=== PATIENT | female | born 1970 | race Caucasian/White ===

== ENCOUNTER 2018-03-13 21:10 | Emergency (ER) | payer SELFPAY ==
[2018-03-13 21:34] VITALS: BP 127/71
[2018-03-13] MEDS ORDERED: NORMAL SALINE 1000 ML 1,000 ML IV ONE (21:58)
--- NOTE | 2018-03-13 22:00 | ER Document Report ---
ED Medical Screen (RME) - General Chief Complaint: Leg Pain Stated Complaint: HEADACHE Time Seen by Provider: 03/13/18 21:54 Notes: 47-year-old female with several complaints. She reports generalized achiness and tingling sensation, she reports lower back pain, aching in her legs, intermittent headaches and nausea sensations. She states that the past 2 days she has been drinking alcohol thinking it might help her headaches. She feels worse. Denies vomiting, fever, chest pain, shortness of breath, severe headache at this time. PMH: None TRAVEL OUTSIDE OF THE [place] IN LAST 30 DAYS: No - Related Data Allergies/Adverse Reactions: levofloxacin [From Levaquin] Adverse Reaction (Verified 11/17/13 03:14) Penicillins Adverse Reaction (Verified 11/17/13 03:14) sulfamethoxazole [From Bactrim] Adverse Reaction (Verified 11/17/13 03:14) trimethoprim [From Bactrim] Adverse Reaction (Verified 11/17/13 03:14) Past Medical History Past Surgical History: Reports: Hx Tonsillectomy - Immunizations Hx Diphtheria, Pertussis, Tetanus Vaccination: Yes Physical Exam - Vital signs Vitals: Temp Pulse Resp BP Pulse Ox 98.4 F 64 16 127/71 H 99 03/13/18 21:33 03/13/18 21:33 03/13/18 21:33 03/13/18 21:33 03/13/18 21:33 - General General appearance: Other - Patient restless, cannot keep her feet still, slightly anxious, however otherwise she is not in any distress - Extremities General lower extremity: Normal inspection, Nontender, Normal color, Normal ROM , Normal strength, Normal temperature. No: Tender, Edema Course - Vital Signs Vital signs: Temp Pulse Resp BP Pulse Ox 98.4 F 64 16 127/71 H 99 03/13/18 21:33 03/13/18 21:33 03/13/18 21:33 03/13/18 21:33 03/13/18 21:33
[2018-03-13 22:29] LABS: ABSOLUTE BASOPHILS # (AUTO) 0.1 10^3/uL (0.0-0.2); ABSOLUTE EOSINOPHILS # (AUTO) 0.5 10^3/uL (0.0-0.6); ABSOLUTE LYMPHOCYTES (AUTO) 4.6 10^3/uL (0.5-4.7); ABSOLUTE MONOCYTES (AUTO) 0.6 10^3/uL (0.1-1.4); ABSOLUTE NEUT (AUTO) 4.5 10^3/uL (1.7-8.2); BASOPHILS % (AUTO) 1.4 % (0-2); EOSINOPHILS % (AUTO) 4.8 % (0-6); HEMATOCRIT 38.7 % (36.0-47.0); HEMOGLOBIN 13.2 g/dL (12.0-15.5); LYMPHOCYTES % (AUTO) 44.2 % (13-45); MEAN CORPUSCULAR HEMOGLOBIN 30.2 pg (27.0-33.4); MEAN CORPUSCULAR HGB CONC 34.2 g/dL (32.0-36.0); MEAN CORPUSCULAR VOLUME 88 fl (80-97); MONOCYTES % (AUTO) 6.1 % (3-13); PLATELET COUNT 368 10^3/uL (150-450); RED BLOOD COUNT 4.38 10^6/uL (3.72-5.28); RED CELL DISTRIBUTION WIDTH 13.6 % (11.5-14.0); SEGMENTED NEUTROPHILS % (AUTO) 43.5 % (42-78); TOTAL CELLS COUNTED % (AUTO) 100 %; WHITE BLOOD COUNT 10.4 10^3/uL (4.0-10.5)
[2018-03-13] MEDS ORDERED: METOCLOPRAMIDE HCL INJ/PF 10 MG/2 ML SDV IV ONE (22:32)
[2018-03-13 23:04] LABS: ANION GAP 10 (5-19); BLOOD UREA NITROGEN 17 mg/dL (7-20); CALCIUM 9.6 mg/dL (8.4-10.2); CARBON DIOXIDE 26 mmol/L (22-30); CHLORIDE 102 mmol/L (98-107); GLUCOSE 94 mg/dL (75-110); POTASSIUM 4.4 mmol/L (3.6-5.0); SODIUM 137.6 mmol/L (137-145)
[2018-03-13 23:37] LABS: APPEARANCE,URINE CLEAR; BILIRUBIN,URINE NEGATIVE (NEGATIVE); COLOR,URINE STRAW; GLUCOSE, URINE NEGATIVE (NEGATIVE); KETONES,URINE NEGATIVE (NEGATIVE); LEUKOCYTE ESTERASE,URINE NEGATIVE (NEGATIVE); NITRITE,URINE NEGATIVE (NEGATIVE); PROTEIN,URINE NEGATIVE (NEGATIVE); URINE SPECIFIC GRAVITY 1.006; UROBILINOGEN,URINE NEGATIVE mg/dL (<2.0)
[2018-03-14] MEDS ORDERED: METOCLOPRAMIDE HCL INJ/PF 10 MG/2 ML SDV IV ONE (00:21)
--- NOTE | 2018-03-14 00:24 | ER Document Report ---
ED General - General Chief Complaint: Leg Pain Stated Complaint: HEADACHE Time Seen by Provider: 03/13/18 21:54 Notes: Patient is a 47-year-old female without chronic medical problems who presents with multiple complaints. Is quite difficult to ascertain exactly what the patient's main complaint is. She does complain of headache, bilateral leg swelling, back pain, dizziness, feelings of fatigue, and nausea. States the symptoms been ongoing for the past 2-3 days. Nothing seems to improve or worsen her symptoms. She attributes these symptoms largely to her headache which she states is a typical headache for her. She describes as a global, throbbing, aching headache. Nothing improves or worsens the headache. She denies any abrupt onset of the headache, focal weakness, numbness or confusion. She has not seen her general doctor regarding today's concerns. She denies fever or constitutional symptoms. TRAVEL OUTSIDE OF THE [place] IN LAST 30 DAYS: No - Related Data Allergies/Adverse Reactions: levofloxacin [From Levaquin] Adverse Reaction (Verified 11/17/13 03:14) Penicillins Adverse Reaction (Verified 11/17/13 03:14) sulfamethoxazole [From Bactrim] Adverse Reaction (Verified 11/17/13 03:14) trimethoprim [From Bactrim] Adverse Reaction (Verified 11/17/13 03:14) Past Medical History - General Information source: Patient - Social History Smoking Status: Current Every Day Smoker Frequency of alcohol use: Occasional Drug Abuse: None Family History: Reviewed & Not Pertinent Patient has suicidal ideation: No Patient has homicidal ideation: No Renal/ Medical History: Denies: Hx Peritoneal Dialysis Past Surgical History: Reports: Hx Tonsillectomy - Immunizations Hx Diphtheria, Pertussis, Tetanus Vaccination: Yes Review of Systems - Review of Systems Notes: Constitutional: Negative for fever. HENT: Negative for sore throat. Eyes: Negative for visual changes. Cardiovascular: Negative for chest pain. Respiratory: Negative for shortness of breath. Gastrointestinal: Negative for abdominal pain, vomiting or diarrhea. Positive for nausea Genitourinary: Negative for dysuria. Musculoskeletal: Positive for low back pain Skin: Negative for rash. Neurological: Positive headaches 10 point ROS negative except as marked above and in HPI. Physical Exam - Vital signs Vitals: Temp Pulse Resp BP Pulse Ox 98.4 F 64 16 127/71 H 99 03/13/18 21:33 03/13/18 21:33 03/13/18 21:33 03/13/18 21:33 03/13/18 21:33 Interpretation: Normal Notes: PHYSICAL EXAMINATION: GENERAL: Well-appearing, well-nourished and in no acute distress. HEAD: Atraumatic, normocephalic. EYES: Pupils equal round and reactive to light, extraocular movements intact, sclera anicteric, conjunctiva are normal. ENT: nares patent, oropharynx clear without exudates. Moist mucous membranes. NECK: Normal range of motion, supple without lymphadenopathy LUNGS: Breath sounds clear to auscultation bilaterally and equal. No wheezes rales or rhonchi. HEART: Regular rate and rhythm without murmurs ABDOMEN: Soft, nontender, normoactive bowel sounds. No guarding, no rebound. No masses appreciated. EXTREMITIES: Normal range of motion, no pitting or edema. No cyanosis. NEUROLOGICAL: Face symmetric. Tongue protrudes midline. Extraocular motions intact. Pupils are 2 mm and equally reactive. Normal speech, normal gait. 5 out of 5 strength in both the distal and proximal upper and lower extremities bilaterally. Sensation is grossly intact throughout. Finger to nose testing normal. Pronator drift normal. PSYCH: Normal mood, normal affect. SKIN: Warm, Dry, normal turgor, no rashes or lesions noted. Course - Re-evaluation Re-evalutation: 03/14/18 00:21 Patient presents with multiple vague complaints that did not appear to be concerning for any acute life-threatening pathology. Vitals are within normal limits at triage and at time of discharge. Physical examination is unremarkable. Patient has tolerated oral intake without difficulty. Patient was not noted to be in distress at any point during their ER visit. Patient did complain of a headache, long-standing, unchanged today. Headache appears to be most consistent with tension versus migrainous type headache. Headache was not maximal in onset, patient has no focal neurologic deficits, no nuchal rigidity, vital signs within normal limits, no papilledema, and patient is overall well in appearance. Based on clinical history and examination I do not suspect an acute subarachnoid hemorrhage, dural venous sinus thrombosis, acute meningitis, or intercranial mass. Given my low clinical suspicion for any acute life-threatening etiology, I do not feel advanced neuro imaging is indicated at this time. Overall, based on the reassuring evaluation, I do not suspect an acute DE, pulmonary embolus, aortic dissection, acute intra- abdominal pathology, stroke, or sepsis. Will discharge with return precautions and follow-up recommendations. Verbal discharge instructions given a the bedside and opportunity for questions given. Medication warnings reviewed. Patient is in agreement with this plan and has verbalized understanding of return precautions and the need for primary care follow-up in the next 24-72 hours. - Vital Signs Vital signs: Temp Pulse Resp BP Pulse Ox 98.4 F 64 16 127/71 H 99 03/13/18 21:33 03/13/18 21:33 03/13/18 21:33 03/13/18 21:33 03/13/18 21:33 - Laboratory Result Diagrams: 03/13/18 22:12 03/13/18 22:12 Laboratory results interpreted by me: 03/13/18 22:15 Urine Blood SMALL H Discharge - Discharge Clinical Impression: Multiple complaints, Bilateral leg pain Headache Qualifiers: Headache type: unspecified Headache chronicity pattern: acute headache Intractability: not intractable Qualified Code(s): R51 - Headache Condition: Good Disposition: HOME, SELF-CARE Additional Instructions: You were seen today for a migraine headache. Please follow-up with your primary care doctor regarding today's ED visit. Return to emergency department immediately if you develop a headache that gets to its maximum severity within 20 minutes of onset, you pass out, you develop weakness, numbness, changes in your vision, become unable to keep any fluids down for more than 12 hours, or develop a fever greater than 100.4 degrees Fahrenheit. If you develop a similar migraine headache in the future I recommend that you immediately take 600 mg of ibuprofen and 50 mg of Benadryl and go to sleep as quickly as possible. This can often prevent your migraine headache from becoming severe. Please return to the emergency room immediately if you experience any concerning symptoms including high fevers, severe headache, chest pain, difficulty breathing, abdominal pain, slurred speech, numbness or weakness in your arms or legs, or any other symptom that concerns you. Prescriptions: Butalb/Acetaminophen/Caffeine [Fioricet (50-325-40 mg) Tablet] 1 tab PO Q4HP PRN #15 tab PRN Reason:
== END 2018-03-14 01:07 | disposition home or self-care (01) ==
LOC: ER 21:10
DX: R51 Headache (principal); M79.605 Pain in left leg; M79.604 Pain in right leg; M79.89 Other specified soft tissue disorders; M54.9 Dorsalgia, unspecified; R42 Dizziness and giddiness; R11.0 Nausea; R53.83 Other fatigue; F17.200 Nicotine dependence, unspecified, uncomplicated; Z88.0 Allergy status to penicillin; Z88.3 Allergy status to other anti-infective agents
CPT/HCPCS: 96376; 99283; 96361; 96374; 36415; 85025; 81025; 80048; 81001; J2765 ×2; J7030